=== PATIENT | male | born 1990 | race Two or more races ===

== ENCOUNTER 2018-09-25 18:11 | Emergency (ER) | payer BC, OTHER ==
[~2018-09-25] VITALS: Ht 177.8 cm; Wt 181.4 kg
[2018-09-25] MEDS ORDERED: cloNIDine HCL 0.1 MG TAB PO ONE (18:45)
[2018-09-25 18:53] VITALS: BP 196/116
[2018-09-25 19:37] LABS: Basophils # (auto) 0 uL; Basophils % (auto) 0.4 % (0.0-2.0); Eosinophils # (auto) 0.3 uL; Eosinophils % (auto) 2.5 % (0.0-7.0); Hematocrit 47.5 % (41.0-53.0); Hemoglobin 16.3 g/dL (13.5-17.5); Lymphocytes # (auto) 1.9 uL; Lymphocytes % (auto) 16.9 % (10.0-50.0); Mean Corpuscular Hemoglobin 28.1 pg (28.0-32.0); Mean Corpuscular Hgb Conc. 34.3 g/dL (32.0-36.0); Monocytes # (auto) 0.7 uL; Monocytes % (auto) 5.8 % (0.0-12.0); Neutrophils # (auto) 8.6 uL; Neutrophils % (auto) 74.4 % (37.0-80.0); Nucleated Red Blood Cells % 0.1 %; Platelet Count (auto) 324 10^3/uL (140-450); Red Blood Cells 5.79 10^6/uL (4.5-5.90); Red Cell Distribution Width 13.6 % (11.8-14.3); White Blood Cell 11.5 10^3/uL (4.4-10.8)
[2018-09-25 19:52] LABS: INR 0.93 (0.9-1.15)
[2018-09-25 19:55] LABS: Albumin 3.9 g/dL (3.4-5.0); Calcium 8.8 mg/dL (8.5-10.1); Potassium 4.2 mmol/L (3.5-5.1)
[2018-09-25 20:00] LABS: BUN/Creatinine Ratio 16.7; Bilirubin, Total 0.4 mg/dL (0.2-1.0)
== END 2018-09-25 22:46 | disposition left against medical advice (07) ==
LOC: ER 18:11
DX: I10 Essential (primary) hypertension (principal); Z53.21 Procedure and treatment not carried out due to patient leaving prior to being seen by health care provider
CPT/HCPCS: 36415; 80053; 85025; 85610; 93005

== ENCOUNTER 2020-07-16 18:00 | Emergency (ER) | payer BC ==
[~2020-07-16] VITALS: Ht 177.8 cm; Wt 176.9 kg
[2020-07-16] MEDS ORDERED: hydrALAZINE HCL 20 MG/ML VL IV ONE (18:30)
[2020-07-16 18:33] VITALS: BP 222/138
[2020-07-16 18:49] LABS: Basophils # (auto) 0.1 10 ^3/uL (0-0.2); Eosinophils # (auto) 0.3 10 ^3/uL (0-0.8); Hemoglobin 15.3 g/dL (13.5-17.5); Monocytes # (auto) 0.5 10 ^3/uL (0-1.3)
[2020-07-16 18:51] LABS: Basophils % (auto) 0.5 % (0.0-2.0); Eosinophils % (auto) 2.4 % (0.0-7.0); Hematocrit 46.2 % (41.0-53.0); Lymphocytes # (auto) 1.8 10 ^3/uL (0.4-5.4); Lymphocytes % (auto) 15.5 % (10.0-50.0); Mean Corpuscular Hgb Conc. 33.2 g/dL (32.0-36.0); Mean Corpuscular Volume 81.4 fL (80.0-100.0); Monocytes % (auto) 4.7 % (0.0-12.0); Neutrophils # (auto) 8.8 10 ^3/uL (1.6-8.6); Neutrophils % (auto) 76.9 % (37.0-80.0); Nucleated Red Blood Cells % 0.1 %; Platelet Count (auto) 310 10^3/uL (140-450); Red Blood Cells 5.68 10^6/uL (4.5-5.90); Red Cell Distribution Width 14.1 % (11.8-14.3); White Blood Cell 11.4 10^3/uL (4.4-10.8)
[2020-07-16] MEDS ORDERED: cloNIDine HCL 0.1 MG TAB PO PRN (19:00)
[2020-07-16 19:08] LABS: Albumin 3.8 g/dL (3.4-5.0); Calcium 8.7 mg/dL (8.5-10.1); Magnesium 2.4 mg/dL (1.6-2.6); Potassium 3.8 mmol/L (3.5-5.1)
[2020-07-16 19:13] LABS: BUN/Creatinine Ratio 12.6; Total Protein 7.9 g/dL (6.4-8.2)
[2020-07-16] MEDS ORDERED: ASPirin 81 mg TAB PO ONE (20:30)
== END 2020-07-16 20:53 | disposition home or self-care (01) ==
LOC: ER 18:00
DX: I16.1 Hypertensive emergency (principal); R79.89 Other specified abnormal findings of blood chemistry; E66.01 Morbid (severe) obesity due to excess calories; I10 Essential (primary) hypertension
CPT/HCPCS: 36415; 71045; 80053; 83735; 84484; 85025; 93005; 96374; 99285; J0360